=== PATIENT | male | born 1960 | race African-American/Black ===

== ENCOUNTER 2023-07-11 10:03 | Emergency (ER) | payer SELFPAY ==
[2023-07-11] MEDS ORDERED: Acetaminophen 500 MG TAB ONE (11:09)
== END 2023-07-11 11:20 | disposition home or self-care (01) ==
LOC: NAV ERS 10:03
DX: M54.50 Low back pain, unspecified (principal); G89.29 Other chronic pain; B20 Human immunodeficiency virus [HIV] disease; I10 Essential (primary) hypertension; F17.210 Nicotine dependence, cigarettes, uncomplicated
CPT/HCPCS: 72100; 99283

== ENCOUNTER 2023-12-08 11:01 | Emergency (ER) | payer SELFPAY ==
[2023-12-08] MEDS ORDERED: HYDROcodone/Acetaminophen 5/325 mg Tablet ONE (12:17)
== END 2023-12-08 12:35 | disposition home or self-care (01) ==
LOC: NAV ERS 11:01
DX: S92.341A Displaced fracture of fourth metatarsal bone, right foot, initial encounter for closed fracture (principal); S92.351A Displaced fracture of fifth metatarsal bone, right foot, initial encounter for closed fracture; S93.401A Sprain of unspecified ligament of right ankle, initial encounter; I10 Essential (primary) hypertension; F17.210 Nicotine dependence, cigarettes, uncomplicated; W19.XXXA Unspecified fall, initial encounter